=== PATIENT | female | born 1955 | race Caucasian/White ===

== ENCOUNTER 2021-01-12 18:39 | Inpatient (IN) | payer MEDICARE ==
[~2021-01-12] VITALS: Ht 162.6 cm; Wt 69.0 kg
--- NOTE | 2021-01-12 18:57 | NUR ---
REPORT FROM LAYLA ANDUJAR
[2021-01-12] MEDS ORDERED: SODIUM CHLORIDE FLUSH 10ML SYR IVF ONE (19:00)
[2021-01-12] MEDS ORDERED: KETOROLAC 30 MG/1 ML IVPush ONE (19:00)
[2021-01-12] MEDS ORDERED: SODIUM CHLORIDE 0.9% 1,000 ML IV ONE (19:00)
[2021-01-12] MEDS ORDERED: MORPHINE SULFATE 4 MG/ML, 1ML IVPush PRN (19:00)
[2021-01-12] MEDS ORDERED: KETOROLAC 30 MG/1 ML ONE (19:13)
[2021-01-12 19:20] LABS: BASOPHILS % (AUTO) 0 % (0-1); EOSINOPHILS % (AUTO) 2 % (1-7); LYMPHOCYTES % (AUTO) 2 % (22-44); MEAN CORPUSCULAR HEMOGLOBIN 29.3 pg (27.0-34.8); MEAN CORPUSCULAR HGB CONC 32.7 g/dL (32.4-35.8); MONOCYTES % (AUTO) 2 % (2-9); NEUTROPHILS % (AUTO) 94 % (42-75); PLATELET COUNT 166 x10^3/uL (130-400); RED CELL DISTRIBUTION WIDTH 13.8 % (9.6-15.2)
[2021-01-12 19:27] LABS: ALBUMIN 1.7 g/dL (3.4-5.0); ANION GAP 12 mmol/L (5-15); CALCIUM 7.3 mg/dL (8.5-10.1); CHLORIDE 103 mmol/L (98-107); CREATININE 3.05 mg/dL (0.55-1.02)
[2021-01-12] MEDS ORDERED: ONDANSETRON 2MG/ML, 2ML IVPush ONE (19:30)
[2021-01-12] MEDS ORDERED: CEFTRIAXONE 1,000 MG in DEXTROSE 5% 50 ML IVPB ONE (19:30)
[2021-01-12] MEDS ORDERED: PLEASE ENTER ALLERGIES MC SCH (19:30)
[2021-01-12] MEDS ORDERED: ONDANSETRON 2MG/ML, 2ML ONE (19:38)
[2021-01-12] MEDS ORDERED: OMNIPAQUE 350 MG/ML, 50 ML BOTTLE ONE (20:06)
[2021-01-12] MEDS ORDERED: HYDROmorphone 2 MG/ML, 1ML IVPush PRN (20:30)
[2021-01-12] MEDS ORDERED: POLYETHYLENE GLYCOL 17 GM PACKET PO PRN (20:30)
[2021-01-12] MEDS ORDERED: LACTATED RINGERS 1,000 ML IV SCH (20:30)
[2021-01-12] MEDS ORDERED: CEFTRIAXONE 2 GM in DEXTROSE 5% 50 ML IVPB SCH (20:30)
[2021-01-12] MEDS ORDERED: LABETALOL 5MG/ML, 20ML IVPush PRN (20:30)
[2021-01-12] MEDS ORDERED: MELATONIN 5 MG TABLET PO PRN (20:30)
[2021-01-12 20:31] LABS: MICROSCOPIC INDICATED
--- NOTE | 2021-01-12 21:03 | NUR ---
OR here to transfer pt
[2021-01-12] MEDS ORDERED: MIDAZOLAM 1 MG/ML, 2ML ONE (21:47)
[2021-01-12] MEDS ORDERED: FENTANYL PF 100 MCG/2ML ONE (21:48)
[2021-01-12] MEDS ORDERED: HYDROmorphone 2 MG/ML, 1ML ONE (22:19)
[2021-01-12] MEDS ORDERED: PROPOFOL 10 MG/ML, 20ML ONE (22:49)
[2021-01-12] MEDS ORDERED: hydrALAzine 20 MG/ML, 1ML IV PRN (23:30)
[2021-01-12] MEDS ORDERED: EPHEDRINE 50 MG/ML, 1ML IVPush PRN (23:30)
[2021-01-12] MEDS ORDERED: LABETALOL 5MG/ML, 20ML IV PRN (23:30)
[2021-01-12] MEDS ORDERED: MEPERIDINE/PF 25MG/0.5ML IVPush PRN (23:30)
[2021-01-12] MEDS ORDERED: HYDROmorphone 1 MG/ML, 1ML INJ IVPush PRN (23:30)
[2021-01-12] MEDS ORDERED: OXYcodone 5 MG/5 ML ORAL.SOL UDC PO PRN (23:30)
[2021-01-12] MEDS ORDERED: FENTANYL PF 100 MCG/2ML IV PRN (23:30)
[2021-01-13] VITALS (7 sets, daily range): BP systolic 86–94; BP diastolic 56–64
[2021-01-13] MEDS ORDERED: ALBU0.63 NEB (00:10)
[2021-01-13] MEDS: OXYcodone IR 5MG TABLET PO PRN ×2 (02:12→20:47)
[2021-01-13 03:00] LABS: BASOPHILS % (AUTO) 0 % (0-1); EOSINOPHILS % (AUTO) 1 % (1-7); LYMPHOCYTES % (AUTO) 2 % (22-44); MEAN CORPUSCULAR HEMOGLOBIN 29.2 pg (27.0-34.8); MEAN CORPUSCULAR HGB CONC 32.6 g/dL (32.4-35.8); MEAN PLATELET VOLUME 7.7 fL (7.4-10.4); MONOCYTES % (AUTO) 1 % (2-9); NEUTROPHILS % (AUTO) 96 % (42-75); PLATELET COUNT 130 x10^3/uL (130-400); RED BLOOD COUNT 3.74 x10^6/uL (3.82-5.3); RED CELL DISTRIBUTION WIDTH 14.1 % (9.6-15.2)
[2021-01-13] MEDS: PIPERACILLIN/TAZO 3.375 GM in DEXTROSE 5% 50 ML IV SCH ×4 (03:01→20:31)
[2021-01-13 03:07] LABS: ANION GAP 13 mmol/L (5-15); CHLORIDE 105 mmol/L (98-107)
[2021-01-13] MEDS ORDERED: LACTATED RINGERS 1,000 ML IVBOLUS ONE (04:30)
[2021-01-13] MEDS: CEFTRIAXONE 2 GM in DEXTROSE 5% 50 ML IVPB SCH (07:59)
[2021-01-13] MEDS ORDERED: POTASSIUM CHLORIDE 40 MEQ in SODIUM CHLORIDE 0.9% 500 ML IV ONE (08:30)
[2021-01-13] MEDS ORDERED: MAGNESIUM SULFATE PMX 4GM/100M 100 ML IVPB ONE (08:30)
[2021-01-13] MEDS ORDERED: ALBUTEROL SULFATE 2.5 MG/3 ML NEB SCH (09:00)
[2021-01-13] MEDS: ONDANSETRON 2MG/ML, 2ML IVPush PRN ×2 (09:14→19:59)
[2021-01-13] MEDS ORDERED: ALBUTEROL SULFATE 2.5 MG/3 ML NEB PRN (11:30)
[2021-01-13] MEDS ORDERED: ALBUTEROL SULFATE 2.5 MG/3 ML NPPB PRN (14:30)
[2021-01-13] MEDS: HEPARIN 5,000 UNITS/ML, 1ML SQ SCH ×2 (14:44→22:10)
[2021-01-13] MEDS: LACTATED RINGERS 1,000 ML IV SCH (22:12)
[2021-01-14 01:32] VITALS: BP 91/61
[2021-01-14] MEDS: PIPERACILLIN/TAZO 3.375 GM in DEXTROSE 5% 50 ML IV SCH (03:12)
[2021-01-14] MEDS: LACTATED RINGERS 1,000 ML IV SCH ×3 (04:14→23:11)
[2021-01-14 06:09] LABS: BASOPHILS % (AUTO) 0 % (0-1); EOSINOPHILS % (AUTO) 0 % (1-7); LYMPHOCYTES % (AUTO) 6 % (22-44); MEAN CORPUSCULAR HEMOGLOBIN 29.4 pg (27.0-34.8); MEAN CORPUSCULAR HGB CONC 33.1 g/dL (32.4-35.8); MONOCYTES % (AUTO) 4 % (2-9); NEUTROPHILS % (AUTO) 89 % (42-75); PLATELET COUNT 94 x10^3/uL (130-400); RED BLOOD COUNT 3.68 x10^6/uL (3.82-5.3); RED CELL DISTRIBUTION WIDTH 14.3 % (9.6-15.2)
[2021-01-14] MEDS: HEPARIN 5,000 UNITS/ML, 1ML SQ SCH ×3 (06:11→23:11)
[2021-01-14 06:35] LABS: ALBUMIN 1.4 g/dL (3.4-5.0); ANION GAP 10 mmol/L (5-15); CALCIUM 7.7 mg/dL (8.5-10.1); CHLORIDE 105 mmol/L (98-107); CREATININE 2.37 mg/dL (0.55-1.02)
[2021-01-14 06:37] LABS: ALANINE AMINOTRANSFERASE 13 U/L (12-78); ALKALINE PHOSPHATASE 127 U/L (45-117); BILIRUBIN,TOTAL 0.2 mg/dL (0.2-1.0); TOTAL PROTEIN 5.3 g/dL (6.4-8.2)
[2021-01-14] MEDS: CEFTRIAXONE 2 GM in DEXTROSE 5% 50 ML IVPB SCH (07:53)
[2021-01-14 07:54] VITALS: BP 91/60
[2021-01-14] MEDS ORDERED: POTASSIUM CHLORIDE 20 MEQ TAB.ER.PRT PO ONE (08:30)
[2021-01-14] MEDS: ONDANSETRON 2MG/ML, 2ML IVPush PRN (13:39)
[2021-01-14 15:27] VITALS: BP 96/64
[2021-01-14 20:26] VITALS: BP 96/60
[2021-01-15 01:40] VITALS: BP 99/65
[2021-01-15 06:11] LABS: BASOPHILS % (AUTO) 0 % (0-1); EOSINOPHILS % (AUTO) 0 % (1-7); LYMPHOCYTES % (AUTO) 7 % (22-44); MEAN CORPUSCULAR HEMOGLOBIN 29.4 pg (27.0-34.8); MEAN CORPUSCULAR HGB CONC 32.8 g/dL (32.4-35.8); MEAN PLATELET VOLUME 8.1 fL (7.4-10.4); MONOCYTES % (AUTO) 4 % (2-9); NEUTROPHILS % (AUTO) 88 % (42-75); PLATELET COUNT 77 x10^3/uL (130-400); RED BLOOD COUNT 3.58 x10^6/uL (3.82-5.3); RED CELL DISTRIBUTION WIDTH 14.2 % (9.6-15.2)
[2021-01-15 06:17] LABS: ANION GAP 8 mmol/L (5-15); CALCIUM 8.4 mg/dL (8.5-10.1); CHLORIDE 109 mmol/L (98-107)
[2021-01-15] MEDS: LACTATED RINGERS 1,000 ML IV SCH ×2 (06:19→20:35)
[2021-01-15 06:20] LABS: CREATININE 1.89 mg/dL (0.55-1.02)
[2021-01-15] MEDS: HEPARIN 5,000 UNITS/ML, 1ML SQ SCH (06:20)
[2021-01-15] MEDS: ONDANSETRON 2MG/ML, 2ML IVPush PRN (06:20)
[2021-01-15] MEDS: OXYcodone IR 5MG TABLET PO PRN (06:21)
[2021-01-15 07:50] VITALS: BP 106/60
[2021-01-15] MEDS ORDERED: POTASSIUM CHLORIDE 40 MEQ in SODIUM CHLORIDE 0.9% 500 ML IV ONE (08:30)
[2021-01-15] MEDS: CEFTRIAXONE 2 GM in DEXTROSE 5% 50 ML IVPB SCH (09:01)
[2021-01-15] MEDS: NYSTATIN 500,000 UNITS/5 ML UDC PO SCH ×2 (14:31→18:44)
[2021-01-15 14:32] VITALS: BP 131/73
[2021-01-15 20:30] VITALS: BP 110/79
[2021-01-16 00:16] VITALS: BP 128/80
[2021-01-16] MEDS: NYSTATIN 500,000 UNITS/5 ML UDC PO SCH ×5 (00:25→21:15)
[2021-01-16] MEDS: ACETAMINOPHEN 325 MG TABLET PO PRN ×3 (00:27→21:15)
[2021-01-16 05:20] LABS: BASOPHILS % (AUTO) 1 % (0-1); EOSINOPHILS % (AUTO) 1 % (1-7); LYMPHOCYTES % (AUTO) 10 % (22-44); MEAN CORPUSCULAR HEMOGLOBIN 29.5 pg (27.0-34.8); MEAN CORPUSCULAR HGB CONC 33.2 g/dL (32.4-35.8); MEAN PLATELET VOLUME 8.3 fL (7.4-10.4); MONOCYTES % (AUTO) 5 % (2-9); NEUTROPHILS % (AUTO) 84 % (42-75); PLATELET COUNT 71 x10^3/uL (130-400); RED BLOOD COUNT 3.41 x10^6/uL (3.82-5.3); RED CELL DISTRIBUTION WIDTH 13.8 % (9.6-15.2)
[2021-01-16 05:32] LABS: ANION GAP 8 mmol/L (5-15); CALCIUM 8.2 mg/dL (8.5-10.1); CHLORIDE 110 mmol/L (98-107); CREATININE 1.38 mg/dL (0.55-1.02)
[2021-01-16] MEDS: LACTATED RINGERS 1,000 ML IV SCH (06:32)
[2021-01-16 07:45] VITALS: BP 149/83
[2021-01-16] MEDS ORDERED: POTASSIUM CHLORIDE 40 MEQ in SODIUM CHLORIDE 0.9% 500 ML IV ONE (08:30)
[2021-01-16] MEDS: CEFTRIAXONE 2 GM in DEXTROSE 5% 50 ML IVPB SCH (08:50)
[2021-01-16] MEDS ORDERED: maalox/diphenh/lido/sucralfate 5 ML PO PRN (12:30)
[2021-01-16 12:50] VITALS: BP 117/67
[2021-01-16] MEDS ORDERED: FUROSEMIDE 20 MG/2 ML IV ONE (15:00)
[2021-01-16] MEDS: ALBUTEROL SULFATE 2.5 MG/3 ML NPPB SCH ×2 (16:00→21:40)
[2021-01-16] MEDS ORDERED: ALBUTEROL SULFATE 2.5 MG/3 ML NPPB SCH (16:00)
[2021-01-16] MEDS: maalox/diphenh/lido/sucralfate 5 ML PO PRN (16:18)
[2021-01-16 18:27] VITALS: BP 133/80
[2021-01-17 01:09] VITALS: BP 129/70
[2021-01-17 05:45] LABS: BASOPHILS % (AUTO) 0 % (0-1); EOSINOPHILS % (AUTO) 1 % (1-7); LYMPHOCYTES % (AUTO) 11 % (22-44); MEAN CORPUSCULAR HEMOGLOBIN 29.8 pg (27.0-34.8); MEAN CORPUSCULAR HGB CONC 33.7 g/dL (32.4-35.8); MEAN PLATELET VOLUME 8.5 fL (7.4-10.4); MONOCYTES % (AUTO) 6 % (2-9); NEUTROPHILS % (AUTO) 82 % (42-75); PLATELET COUNT 82 x10^3/uL (130-400); RED BLOOD COUNT 3.23 x10^6/uL (3.82-5.3); RED CELL DISTRIBUTION WIDTH 13.4 % (9.6-15.2)
[2021-01-17 05:50] LABS: ANION GAP 7 mmol/L (5-15); CALCIUM 7.9 mg/dL (8.5-10.1); CHLORIDE 108 mmol/L (98-107); CREATININE 0.94 mg/dL (0.55-1.02)
[2021-01-17] MEDS: ACETAMINOPHEN 325 MG TABLET PO PRN (05:57)
[2021-01-17] MEDS: NYSTATIN 500,000 UNITS/5 ML UDC PO SCH ×2 (05:57→11:56)
[2021-01-17] MEDS ORDERED: POTASSIUM CHLORIDE 40 MEQ in SODIUM CHLORIDE 0.9% 500 ML IV ONE (08:00)
[2021-01-17] MEDS ORDERED: POTASSIUM CHLORIDE 20 MEQ TAB.ER.PRT PO ONE (08:00)
[2021-01-17 08:26] VITALS: BP 117/70
[2021-01-17] MEDS: CEFTRIAXONE 2 GM in DEXTROSE 5% 50 ML IVPB SCH (08:26)
[2021-01-17] MEDS: ALBUTEROL SULFATE 2.5 MG/3 ML NPPB SCH (09:00)
[2021-01-17] MEDS: maalox/diphenh/lido/sucralfate 5 ML PO PRN (11:57)
[2021-01-17] MEDS ORDERED: CEFD300C37 PO (12:35)
[2021-01-17] MEDS ORDERED: ACET-1600 PO (12:36)
[2021-01-17 14:07] VITALS: BP 139/86
[2021-01-17] MEDS ORDERED: ALBUTEROL SULFATE 2.5 MG/3 ML NPPB SCH (21:00)
== END 2021-01-17 14:55 | disposition home health service (06) | DRG 853 ==
LOC: ED 19:09 → EDIP 20:16 → 4NE 01-13 00:01
PROVIDERS: ADMIT Internal Medicine; ATTEND Internal Medicine
PROC: BT141ZZ Fluoroscopy of Kidneys, Ureters and Bladder using Low Osmolar Contrast (ICD-10-PCS; 2021-01-12)
PROC: 0T9B70Z Drainage of Bladder with Drainage Device, Via Natural or Artificial Opening (ICD-10-PCS; 2021-01-12)
PROC: 0T788DZ Dilation of Bilateral Ureters with Intraluminal Device, Via Natural or Artificial Opening Endoscopic (ICD-10-PCS; principal; 2021-01-12 23:30)
DX: A41.9 Sepsis, unspecified organism (principal); N17.0 Acute kidney failure with tubular necrosis; N13.6 Pyonephrosis; J96.11 Chronic respiratory failure with hypoxia; M19.90 Unspecified osteoarthritis, unspecified site; G40.909 Epilepsy, unspecified, not intractable, without status epilepticus; I77.811 Abdominal aortic ectasia; D69.6 Thrombocytopenia, unspecified; F17.210 Nicotine dependence, cigarettes, uncomplicated; N18.9 Chronic kidney disease, unspecified; E11.22 Type 2 diabetes mellitus with diabetic chronic kidney disease; I50.9 Heart failure, unspecified; N81.10 Cystocele, unspecified; J44.9 Chronic obstructive pulmonary disease, unspecified; Z88.0 Allergy status to penicillin; Z83.3 Family history of diabetes mellitus; Z90.89 Acquired absence of other organs; Z82.49 Family history of ischemic heart disease and other diseases of the circulatory system; Z99.81 Dependence on supplemental oxygen; Z79.899 Other long term (current) drug therapy
CPT/HCPCS: 36415; 71045; 74420; 80048; 80053; 81001; 82040; 83605; 83735; 84100; 85025; 86022; 87040; 87086; 94640; 96374; 96375; 99285; G0378; J0696; J1170; J1644; J1885; J2250; J2405; J2543; J2704; J3010; J3480; J7613; Q9967; C1769; C2617; J1940; J3475; J7030; J7040; J7120

== ENCOUNTER 2021-02-21 12:12 | Day surgery (SDC) | payer MEDICARE ==
[~2021-02-21] VITALS: Ht 163.8 cm; Wt 52.9 kg
[~2021-02-21 12:12] MED LIST: ACET-1600 PO; ALBU0.63 NEB; CEFD300C37 PO
[2021-02-21 13:49] LABS: MICROSCOPIC AUTO
[2021-02-21 14:01] VITALS: BP 119/81
[2021-02-21] MEDS: LACTATED RINGERS 1,000 ML IV SCH (14:01)
[2021-02-21] MEDS ORDERED: OMEP-110 PO (14:11)
[2021-02-21] MEDS ORDERED: OMNIPAQUE 350 MG/ML, 50 ML BOTTLE ONE (14:11)
[2021-02-21 14:18] LABS: ANION GAP 5 mmol/L (5-15); CALCIUM 8.6 mg/dL (8.5-10.1); CHLORIDE 108 mmol/L (98-107); CREATININE 1.03 mg/dL (0.55-1.02); INTERNATIONAL NORMALIZED RATIO 1.05 (0.93-1.1); PROTHROMBIN TIME 11.2 Seconds (9.6-11.5)
[2021-02-21] MEDS: CHLORHEXIDINE 15 ML UDC PO ONE (14:18)
[2021-02-21] MEDS ORDERED: FENTANYL PF 100 MCG/2ML ONE ×2 (14:26→15:40)
[2021-02-21] MEDS ORDERED: LORazepam 2 MG/ML, 1ML IVPush PRN (16:30)
[2021-02-21] MEDS ORDERED: FENTANYL PF 100 MCG/2ML IV PRN (16:30)
[2021-02-21] MEDS ORDERED: PROMETHAZINE 25 MG/ML, 1ML IVPush PRN (16:30)
[2021-02-21] MEDS ORDERED: hydrALAzine 20 MG/ML, 1ML IV PRN (16:30)
[2021-02-21] MEDS ORDERED: MEPERIDINE/PF 25MG/0.5ML IVPush PRN (16:30)
[2021-02-21] MEDS ORDERED: HYDROmorphone 1 MG/ML, 1ML INJ IVPush PRN (16:30)
[2021-02-21] MEDS ORDERED: ALBUTEROL/IPRATROPIUM 2.5MG/0.5MG, 3 ML NPPB PRN (16:30)
[2021-02-21] MEDS ORDERED: PROMETHAZINE 25 MG SUPP PR PRN (16:30)
[2021-02-21] MEDS ORDERED: HYDROcodone/APAP 7.5-325MG/15ML UDC PO PRN (16:30)
[2021-02-21] MEDS ORDERED: ONDANSETRON 2MG/ML, 2ML IVPush PRN (16:30)
[2021-02-21] MEDS ORDERED: LABETALOL 5MG/ML, 20ML IV PRN (16:30)
[2021-02-21] MEDS ORDERED: METOPROLOL 1 MG/ML, 5ML IV PRN (16:30)
[2021-02-21] MEDS ORDERED: HALOPERIDOL 5 MG/ML IV PRN (16:30)
[2021-02-21] MEDS ORDERED: OXYcodone 5 MG/5 ML ORAL.SOL UDC PO PRN (16:30)
[2021-02-21] MEDS: ACETAMINOPHEN 325 MG TABLET PO PRN (18:29)
== END 2021-02-21 19:00 | disposition home or self-care (01) ==
LOC: OUT 12:12
PROVIDERS: ATTEND Student in an Organized Health Care Education/Training Program
DX: N20.0 Calculus of kidney (principal); Z20.822 Contact with and (suspected) exposure to COVID-19; Z79.01 Long term (current) use of anticoagulants; Z79.899 Other long term (current) drug therapy
CPT/HCPCS: 36415; 52356; 74018; 80048; 81001; 82360; 85610; 87086; 87635; 88300; 93005; C1769; C2617; J3010; J7120; 76000; Q9967